=== PATIENT | female | born 1955 | race Caucasian/White ===

== ENCOUNTER 2016-10-01 06:23 | Day surgery (SDC) | payer MEDICARE, OTHER ==
--- NOTE | ~2016-10-01 | EGD ---
EGD REPORT [facility] [address] [address] NAME: TEODORA BRIDGES : 51 STATUS : REG [facility] PAT#: [id number] AGE: 61 ADM/REG DATE : 10/01/16 MR#: [id number] REPORT SERV DATE: 10/01/16 DICTATED BY: LOKI MILLER DATE: 10/01/16 REPORT STATUS : Draft [facility]: [facility] DATE: 10/01/16 Endoscopy Center Patient Name: Teodora Bridges Date of : 1955 Attending MD: LOKI MILLER MD Procedure Date No Time: 10/01/2016 Procedure: Upper GI endoscopy Indications: hx gastric carcinoid Referring MD: Richar Spear III, MD, MERRY MIJARES MD Medicines: as per anesthesia Complications: No immediate complications. Procedure: Pre-Anesthesia Assessment: - ASA Grade Assessment: III - A patient with severe systemic disease. After obtaining informed consent, the endoscope was passed under direct vision. Throughout the procedure, the patient's blood pressure, pulse, and oxygen saturations were monitored continuously. The GIF [id number] was introduced through the mouth, and advanced to the third part of duodenum. The upper GI endoscopy was accomplished without difficulty. The patient tolerated the procedure. Findings: The examined esophagus was normal. Multiple sessile polyps were found in the gastric body. Biopsies were taken with a cold forceps for histology. The examined duodenum was normal. Impression: - Normal esophagus. - Multiple gastric polyps. Biopsied. - Normal examined duodenum. Recommendation: - Await pathology results. Procedure Code(s): --- Professional --- 04739, Esophagogastroduodenoscopy, flexible, transoral; with biopsy, single or multiple Diagnosis Code(s): --- Professional --- K31.7, Polyp of stomach and duodenum CPT copyright 2013 [employer]. All rights reserved. EGD REPORT [facility] [address] [place]. [address] NAME: TEODORA BRIDGES : [birth year] STATUS : REG [facility] PAT#: [id number] AGE: 61 ADM/REG DATE : 10/01/16 MR#: [id number] REPORT SERV DATE: 10/01/16 DICTATED BY: LOKI MILLER. DATE: 10/01/16 REPORT STATUS : Draft TRANSCRIBED BY: [employer] DATE: 10/01/16 The codes documented in this report are preliminary and upon director correctional agency review may be revised to meet current compliance requirements. LOKI MILLER MD 10/01/2016 11:00 AM This report has been signed electronically. Number of Addenda: 0 Note Initiated On: 10/01/2016 10:39 AM Scope Withdrawal Time 0 hours 0 minutes 0 seconds [address] [facility] [place] [address]
[~2016-10-01 06:23] MED LIST: ASAB PO; B121000P IM; B121000P SC; BUSPAR10 PO; CALTRA600D PO; CALTRAT600 PO; CRESTOR20 MG PO; GLUCPH PO; HARD NAILS PO; HYDROCHLOROT12.5 MG PO; IRON PO; KLOR-CON 1010 MEQ PO; L20 PO; LAN25 PO; LEVOTHYROXIN50 MCG PO; LIPITOR40 PO; LOP25 PO; LOP50 PO; LOTE20 PO; LOTE40 PO; MOTRIN IB200 MG PO; NITROQUICK0.4 MG SL; PEP20 PO; PLAVIX PO; PREDNISONE2.5 MG PO; PROZAC PO; SUCR PO; SULFAZINE500 MG PO; VITAMIN B-122500 MCG SL; VITD PO; ZETIA PO
== END 2016-10-01 23:59 | disposition home or self-care (01) ==
LOC: DMU 06:23
PROVIDERS: Internal Medicine Gastroenterology
PROC: 0DB68ZX Excision of Stomach, Via Natural or Artificial Opening Endoscopic, Diagnostic (ICD-10-PCS; principal; 2016-10-01 08:30)
DX: D3A.8 Other benign neuroendocrine tumors (principal); K31.7 Polyp of stomach and duodenum; I10 Essential (primary) hypertension; E11.9 Type 2 diabetes mellitus without complications; F41.9 Anxiety disorder, unspecified; M06.9 Rheumatoid arthritis, unspecified; Z95.5 Presence of coronary angioplasty implant and graft; Z98.890 Other specified postprocedural states
CPT/HCPCS: 82962; 88305; 88360

== ENCOUNTER 2017-02-20 05:33 | Inpatient (IN) | payer MEDICARE, OTHER ==
[2017-02-13 10:09] LABS: BASOPHILS 0.6 %; BASOPHILS ABSOLUTE 0.04 10/3/uL (0.0-0.16); EOSINOPHILS 2.4 %; EOSINOPHILS ABSOLUTE 0.15 10/3/uL (0.0-0.53); HEMATOCRIT 41.1 % (36.0-48.0); IMMATURE GRANULOCYTES 0.5 %; IMMATURE GRANULOCYTES ABSOLUTE 0.03 10/3/uL (0.0-0.11); LYMPHOCYTES 16.4 %; LYMPHOCYTES ABSOLUTE 1.04 10/3/uL (0.67-4.30); MEAN CORPUS HGB CONC 34.1 g/dL (32.0-36.0); MEAN CORPUSCULAR HEMOGLOB 30.5 pg (26.0-34.0); MEAN CORPUSCULAR VOLUME 89.5 fL (80-100); MEAN PLATELET VOLUME 9.4 fL (9.2-13.0); MONOCYTES 9.1 %; MONOCYTES ABSOLUTE 0.58 10/3/uL (0.21-1.20); NEUTROPHILS ABSOLUTE 4.51 10/3/uL (2.02-8.40); PLATELET COUNT 305 10/3/uL (150-400); RBC DISTRIBUTION WIDTH 12.9 % (12.0-16.0); RED CELL COUNT 4.59 10/6/uL (4.0-5.6); WHITE BLOOD CELLS 6.4 10/3/uL (4.5-10.5)
[2017-02-13 10:12] LABS: MANUAL DIFF NO %
[2017-02-13 10:17] LABS: PARTIAL THROMBO TIME 27.5 SEC (22.5-37.2); PROTIME (NOT ORD) 12.6 SEC (12.0-14.5)
[2017-02-13 10:25] LABS: A/G RATIO 1.2 (0.7-1.9); ALBUMIN 4.6 G/DL (3.5-5.0); ALKALINE PHOSPHATASE 101 U/L (45-117); CALCIUM, SERUM 9.4 MG/DL (8.5-10.4); CHLORIDE, SERUM 101 MMOL/L (96-112); CO2 (CARBON DIOXIDE) 33 MMOL/L (24-34); GFR AFRICAN AMERICAN 112 ML/MIN (>=60); GFR NON AFRICAN AMERICAN 97 ML/MIN (>=60); GLOBULIN 3.8 G/DL (2.5-4.1); GLUCOSE, SERUM 131 MG/DL (60-99); POTASSIUM, SERUM 3.8 MMOL/L (3.5-5.3); SGOT(AST) 25 U/L (5-40); SGPT(ALT) 53 U/L (5-65); SODIUM, SERUM 140 MMOL/L (135-148); TOTAL BILIRUBIN 0.4 MG/DL (0-1.2); TOTAL PROTEIN 8.4 G/DL (6.0-8.5)
[2017-02-13 10:26] LABS: BUN (BLOOD UREA NITROGEN) 11 MG/DL (6-23)
[~2017-02-20] VITALS: Ht 154.9 cm; Wt 59.4 kg
--- NOTE | ~2017-02-20 | OP ---
Record Of Operation [facility] [address] [place]. [address] NAME: MASON ROSS : 51 STATUS : ADM IN PAT#: [id number] AGE: 61 ADM/REG DATE : 02/20/17 MR#: [id number] REPORT SERV DATE: 02/20/17 DICTATED BY: VICTOR MANUEL COLON III DATE: 02/20/17 REPORT STATUS : Draft TRANSCRIBED BY: MODL DATE: 02/20/17 DATE OF PROCEDURE: 02/20/2017 PREOPERATIVE DIAGNOSIS: Diffuse gastric carcinoid tumors. POSTOPERATIVE DIAGNOSIS: Diffuse gastric carcinoid tumors. PROCEDURE: Partial gastrectomy with gastrojejunostomy. SURGEON: Victor Manuel Colon M.D. ANESTHESIA: General with intubation. COMPLICATIONS: None. ESTIMATED BLOOD LOSS: 20 mL. SPECIMENS: Distal stomach including antrum. DRAINS: Andres-Gaines in abdominal cavity and Nohemy in subcutaneous tissue. LAP AND SPONGE COUNT: Correct x3. BRIEF HISTORY: This 61-year-old female presented with evidence for diffuse gastric carcinoid tumors. These were diffuse throughout, primarily at the body and antrum of the stomach. These were too diffuse to allow for endoscopic resection. It was felt that distal gastrectomy was indicated in an attempt to alleviate the majority of these tumors and to control the remainder by elimination of gastrin stimulation. The fact that this was a major operation with risk for major morbidity and mortality has been explained. The physiology of the disease and the indications for an antrectomy rather than total gastrectomy was explained. It was explained to the patient, however, that close endoscopic surveillance would be needed definitely after surgery. It was explained that if she did not respond and if these tumors did not resolve, then eventual return to the operating room for completion gastrectomy might be required. Regarding the surgery, the procedure, risks, benefits, and alternatives, including but not limited to the risk for bleeding, infection, enterotomy, injury to any abdominal structure, postop small bowel obstruction, ileus, incisional hernia, dehiscence, anastomotic leak, requiring reoperation, resulting in peritonitis, sepsis, and , gastroparesis gastric outlet obstruction, efferent limb syndrome, duodenal stump leak resulting in peritonitis, sepsis, and , and unforeseen complications including deep venous thrombosis, pulmonary embolus, myocardial infarction, stroke, pneumonia, and , were fully explained to the patient at length on several occasions and to her family prior to surgery. Their questions were answered. They understood the risks and agreed to surgery as planned. DESCRIPTION OF PROCEDURE: After being properly identified and after discussing the risks of surgery with the patient and family again in the preoperative area, she was taken to the Record Of Operation [address] [place]. [address] NAME: MASON ROSS : 51 STATUS : ADM IN PAT#: [id number] AGE: 61 ADM/REG DATE : 02/20/17 MR#: [id number] REPORT SERV DATE: 02/20/17 DICTATED BY: VICTOR MANUEL COLON III DATE: 02/20/17 REPORT STATUS : Draft TRANSCRIBED BY: MODJose DATE: 02/20/17 operating room and placed in a supine position on the operating room table. General anesthesia was administered, and she was intubated without difficulty. A Sinclair catheter and NG tube were inserted. The abdomen was prepped and draped sterilely in the usual fashion. After an appropriate "time-out" per JCAHO standards, a midline incision was made from just beneath the xiphoid process to several centimeters above the umbilicus. The incision was continued through the subcutaneous tissue. Hemostasis was controlled with cautery. The incision was continued through the fascia. The abdominal cavity was entered. The abdomen was inspected. The stomach was normal externally. The liver was somewhat enlarged diffusely, but there were no discrete masses or lesions noted. The exploration was, otherwise, unremarkable. We turned our attention to the stomach. We selected a point for division of the stomach near the junction of the antrum with the body. A window was made in the gastrocolic ligament at this point. The gastrocolic ligament to the greater curve of the stomach distal to this was then divided using Harmonic scalpel. Similarly, the lesser curve of the stomach was divided with Harmonic scalpel corresponding to this portion of the stomach. The dissection was continued to just beyond the pylorus. There were no palpable masses within the stomach. The greater curve of the stomach was exposed to just beyond the pylorus. The duodenum was then divided just beyond the pylorus using a TA-60 stapler. We selected a point of division of the stomach proximally, at the area of the junction between the antrum and the body of the stomach. A LUCHO stapler used to divide the stomach at this point. The distal stomach or antrum was then sent to pathology. It was interpreted containing numerous carcinoid tumors with clear margins. We then performed an end gastric to side jejunal anastomosis. The proximal jejunum, beyond ligament of Treitz was brought through a window made in the avascular portion of the mesentery to the transverse colon. Anastomosis was performed using the divided into the stomach. A two-layer anastomosis was performed end gastric to side jejunum. This was a two layer anastomosis. The outer posterior layer of the anastomosis was completed with interrupted 3-0 silk sutures. The inner layer of the anastomosis was completed with a running 3-0 chromic suture and the outer anterior layer of the anastomosis was completed with interrupted 3-0 silk sutures. It should be noted that prior to completing the anastomosis, the mucosa of the stomach was inspected through the gastrotomy. No other suspicious lesions or polyps could be seen. Upon completion of this, the anastomosis was widely patent to palpation. It was not twisted or kinked in any way, and it was not under any tension. The anastomosis was secured to the mesentery of the transverse colon with interrupted 3-0 silk sutures. Great care was taken to be certain of both afferent and efferent limbs were in the correct position, and they were not twisted or kinked in any way or not under any tension. The NG tube was positioned just proximal to the anastomosis. The duodenal stump was oversewn with interrupted 3-0 silk sutures. Evicel glue was placed over the duodenal stump closure. The abdominal cavity was irrigated copiously with saline. Hemostasis was assured. A Andres-Gaines drain was brought through a separate stab wound and placed in the right upper quadrant. The fascia was closed with a running looped #1 PDS suture. The subcutaneous tissue was closed with running 3-0 chromic suture. The skin was Record Of Operation [place] [id number] [facility] [place]. [address] NAME: MASON ROSS : 51 STATUS : ADM IN [facility]#: [id number] AGE: 61 ADM/REG DATE : 02/20/17 MR#: [id number] REPORT SERV DATE: 02/20/17 DICTATED BY: VICTOR MANUEL COLON III DATE: 02/20/17 REPORT STATUS : Draft TRANSCRIBED BY: MODL DATE: 02/20/17 closed with running subcuticular 4-0 Monocryl stitch. Dressings were applied. Anesthesia was reversed. The patient was taken to the recovery room in stable condition. She tolerated the procedure well. Her family was informed of results of surgery. The patient will remain in the hospital for postoperative care. HILDA/TEENA Victor Manuel Colon III, M.D. / [id number] CC: Ariana Fletcher III, M.D. An Tran, MD David Collins, M.D.
--- NOTE | ~2017-02-20 | PREOPHP ---
PreOp History and Physical [facility] [address] [place]. [address] NAME: MASON ROSS : 51 STATUS : ADM IN PAT#: [id number] AGE: 61 ADM/REG DATE : 02/20/17 MR#: [id number] REPORT SERV DATE: 02/20/17 DICTATED BY: VICTOR MANUEL MINER III DATE: 01/26/17 REPORT STATUS : Draft TRANSCRIBED BY: MODJose DATE: 01/26/17 HISTORY OF PRESENT ILLNESS: This 61-year-old female comes to the operating room for distal gastrectomy or antrectomy for diffuse gastric carcinoid tumor or neuroendocrine tumors. The patient has a history of diffuse polyps in the stomach on biopsy, which had been repeatedly performed. These are neuroendocrine tumors. These are not focally localized, but diffuse throughout the body of the stomach. The patient comes to the operating room now for distal gastrectomy or antrectomy in order to eliminate gastric production and to encourage regression of these tumors. The alternative of total gastrectomy has been offered to the patient, but declined. It has been fully explained to the patient that with this technique, careful endoscopic surveillance will be required. It has been explained that if she does not respond to this management or if the proximal gastric carcinoid tumors do not regress, then eventually a total gastrectomy will be required. The fact that this is a major operation with risk for major morbidity and mortality has been explained to the patient. Questions were answered. She understands and agrees to this as planned. PAST MEDICAL HISTORY: 1. Diffuse gastric carcinoid tumor, this has been associated with abdominal pain, cramping, and occasional nausea and vomiting. 2. Hypertension. 3. Diabetes mellitus. 4. Coronary artery disease. 5. Hypothyroidism. 6. Hyperlipidemia. MEDICATIONS: Pepcid, Carafate, sulfasalazine, prednisone, digoxin, hydrochlorothiazide, iron, metformin, atorvastatin, aspirin, biotin, vitamins, buspirone, benazepril, Zetia, Lasix, levothyroxine, metoprolol, and NitroQuick. PAST SURGICAL HISTORY: History of hysterectomy. FAMILY HISTORY: Positive for cancer and heart disease. SOCIAL HISTORY: The patient is . She has no history of tobacco or alcohol use. ALLERGIES: NONE. REVIEW OF SYSTEMS: Patient complains of weight loss. Her 14-point review of systems is otherwise unremarkable except for joint pain. PHYSICAL EXAMINATION: GENERAL: This is a female, in no acute distress. She is alert, oriented x3. VITAL SIGNS: Blood pressure 114/73, temperature 97.3, pulse 80. HEENT: Unremarkable. Cranial nerves 2 through 12 were normal. LUNGS: Clear. CARDIAC: Normal. ABDOMEN: Soft and nontender. PreOp History and Physical [facility] [address] [place]. [address] NAME: MASON ROSS : 51 STATUS : ADM IN [facility]#: [id number] AGE: 61 ADM/REG DATE : 02/20/17 MR#: [id number] REPORT SERV DATE: 02/20/17 DICTATED BY: VICTOR MANUEL MINER III DATE: 01/26/17 REPORT STATUS : Draft TRANSCRIBED BY: TEENA DATE: 01/26/17 EXTREMITIES: Normal with no edema. LABORATORY: Repeated upper endoscopy showed diffuse gastric polyps, primarily in the body of the stomach. Biopsy shows these to be consistent with neuroendocrine tumors, with the most recent biopsy showing increasing cytological atypia of concern for possible development of invasive malignancy. Her octreotide scan shows no evidence for metastatic disease. ASSESSMENT: 1. A 61-year-old female with longstanding gastric carcinoid tumor, diffuse throughout the stomach with no localization, which would allow for local resection. 2. Hypertension. 3. Diabetes mellitus. 4. Coronary artery disease. 5. Hypothyroidism. 6. Hyperlipidemia. 7. Arthritis. PLAN: The patient comes to the operating room now for distal gastrectomy or antrectomy. This procedure, the risks, benefits, and alternatives, including, but not limited to the risk for bleeding, infection, enterotomy, injury to abdominal structure, postop small bowel obstruction, ileus, incisional hernia, dehiscence, anastomotic leak, resulting in peritonitis, sepsis, and , duodenal stump leak, requiring reoperation or resulting in peritonitis, sepsis, and , gastroparesis, gastric bowel obstruction, common bile duct injury, pancreatic injury, and unforeseen complications including deep venous thrombosis, pulmonary embolus, myocardial infarction, stroke, pneumonia, and , have been fully and completely explained to the patient and family at length prior to surgery. The fact that this is a major operation with risk for major morbidity and mortality has been explained. The expected length of recovery has been explained. The possibility that this procedure may not result in resolution of the more proximal gastric carcinoid tumor or neuroendocrine tumors, and therefore, eventually a total gastrectomy may still be required has been explained. The patient's questions have been answered. She clearly understands the risks and agrees to surgery as planned. HILDA/TEENA Victor Manuel Miner III, M.D. / [id number] CC: Victor Manuel Miner III, M.D.
[2017-02-21 06:44] LABS: BASOPHILS 0.2 %; BASOPHILS ABSOLUTE 0.02 10/3/uL (0.0-0.16); EOSINOPHILS 0.4 %; EOSINOPHILS ABSOLUTE 0.04 10/3/uL (0.0-0.53); HEMOGLOBIN 11.5 g/dL (12.0-16.0); IMMATURE GRANULOCYTES 0.2 %; IMMATURE GRANULOCYTES ABSOLUTE 0.02 10/3/uL (0.0-0.11); LYMPHOCYTES 9.5 %; LYMPHOCYTES ABSOLUTE 1.04 10/3/uL (0.67-4.30); MEAN CORPUS HGB CONC 33.4 g/dL (32.0-36.0); MEAN CORPUSCULAR HEMOGLOB 30.1 pg (26.0-34.0); MEAN CORPUSCULAR VOLUME 90.1 fL (80-100); MEAN PLATELET VOLUME 9.1 fL (9.2-13.0); MONOCYTES ABSOLUTE 0.99 10/3/uL (0.21-1.20); NEUTROPHILS 80.7 %; NEUTROPHILS ABSOLUTE 8.83 10/3/uL (2.02-8.40); PLATELET COUNT 234 10/3/uL (150-400); RED CELL COUNT 3.82 10/6/uL (4.0-5.6)
[2017-02-21 06:47] LABS: HEMATOCRIT 34.4 % (36.0-48.0); MANUAL DIFF NO %; WHITE BLOOD CELLS 10.9 10/3/uL (4.5-10.5)
[2017-02-21 06:59] LABS: A/G RATIO 1.1 (0.7-1.9); ALBUMIN 3.1 G/DL (3.5-5.0); ALKALINE PHOSPHATASE 60 U/L (45-117); BUN (BLOOD UREA NITROGEN) 7 MG/DL (6-23); CALCIUM, SERUM 8.3 MG/DL (8.5-10.4); CHLORIDE, SERUM 105 MMOL/L (96-112); CO2 (CARBON DIOXIDE) 28 MMOL/L (24-34); CREATININE 0.58 MG/DL (0.55-1.02); GFR AFRICAN AMERICAN 114 ML/MIN (>=60); GFR NON AFRICAN AMERICAN 98 ML/MIN (>=60); GLOBULIN 2.8 G/DL (2.5-4.1); GLUCOSE, SERUM 144 MG/DL (60-99); POTASSIUM, SERUM 3.9 MMOL/L (3.5-5.3); SGOT(AST) 19 U/L (5-40); SGPT(ALT) 27 U/L (5-65); SODIUM, SERUM 139 MMOL/L (135-148); TOTAL BILIRUBIN 0.6 MG/DL (0-1.2); TOTAL PROTEIN 5.9 G/DL (6.0-8.5)
[2017-02-22 06:42] LABS: BASOPHILS 0.4 %; BASOPHILS ABSOLUTE 0.03 10/3/uL (0.0-0.16); EOSINOPHILS ABSOLUTE 0.24 10/3/uL (0.0-0.53); HEMATOCRIT 32.6 % (36.0-48.0); HEMOGLOBIN 10.9 g/dL (12.0-16.0); IMMATURE GRANULOCYTES 0.3 %; IMMATURE GRANULOCYTES ABSOLUTE 0.02 10/3/uL (0.0-0.11); LYMPHOCYTES 10.6 %; LYMPHOCYTES ABSOLUTE 0.85 10/3/uL (0.67-4.30); MEAN CORPUS HGB CONC 33.4 g/dL (32.0-36.0); MEAN CORPUSCULAR HEMOGLOB 30.5 pg (26.0-34.0); MEAN CORPUSCULAR VOLUME 91.3 fL (80-100); MEAN PLATELET VOLUME 9.1 fL (9.2-13.0); MONOCYTES ABSOLUTE 0.72 10/3/uL (0.21-1.20); NEUTROPHILS 76.7 %; NEUTROPHILS ABSOLUTE 6.14 10/3/uL (2.02-8.40); PLATELET COUNT 227 10/3/uL (150-400); RBC DISTRIBUTION WIDTH 13.1 % (12.0-16.0); RED CELL COUNT 3.57 10/6/uL (4.0-5.6)
[2017-02-22 06:55] LABS: MANUAL DIFF NO %
[2017-02-22 06:58] LABS: BUN (BLOOD UREA NITROGEN) 5 MG/DL (6-23); CALCIUM, SERUM 8.6 MG/DL (8.5-10.4); CHLORIDE, SERUM 104 MMOL/L (96-112); CO2 (CARBON DIOXIDE) 30 MMOL/L (24-34); CREATININE 0.48 MG/DL (0.55-1.02); GFR AFRICAN AMERICAN 121 ML/MIN (>=60); GFR NON AFRICAN AMERICAN 104 ML/MIN (>=60); GLUCOSE, SERUM 141 MG/DL (60-99); POTASSIUM, SERUM 3.7 MMOL/L (3.5-5.3); SODIUM, SERUM 136 MMOL/L (135-148)
[2017-02-23 06:35] LABS: BASOPHILS 0.4 %; BASOPHILS ABSOLUTE 0.03 10/3/uL (0.0-0.16); EOSINOPHILS 3.9 %; EOSINOPHILS ABSOLUTE 0.29 10/3/uL (0.0-0.53); HEMATOCRIT 33.1 % (36.0-48.0); HEMOGLOBIN 11.2 g/dL (12.0-16.0); IMMATURE GRANULOCYTES 0.3 %; IMMATURE GRANULOCYTES ABSOLUTE 0.02 10/3/uL (0.0-0.11); LYMPHOCYTES 9.8 %; LYMPHOCYTES ABSOLUTE 0.73 10/3/uL (0.67-4.30); MANUAL DIFF NO %; MEAN CORPUS HGB CONC 33.8 g/dL (32.0-36.0); MEAN CORPUSCULAR HEMOGLOB 30.2 pg (26.0-34.0); MEAN CORPUSCULAR VOLUME 89.2 fL (80-100); MEAN PLATELET VOLUME 9.1 fL (9.2-13.0); MONOCYTES 8.9 %; MONOCYTES ABSOLUTE 0.66 10/3/uL (0.21-1.20); NEUTROPHILS 76.7 %; NEUTROPHILS ABSOLUTE 5.71 10/3/uL (2.02-8.40); PLATELET COUNT 246 10/3/uL (150-400); RBC DISTRIBUTION WIDTH 12.7 % (12.0-16.0); RED CELL COUNT 3.71 10/6/uL (4.0-5.6); WHITE BLOOD CELLS 7.4 10/3/uL (4.5-10.5)
[2017-02-23 06:48] LABS: BUN (BLOOD UREA NITROGEN) 4 MG/DL (6-23); CALCIUM, SERUM 8.6 MG/DL (8.5-10.4); CHLORIDE, SERUM 101 MMOL/L (96-112); CO2 (CARBON DIOXIDE) 27 MMOL/L (24-34); GFR AFRICAN AMERICAN 119 ML/MIN (>=60); GFR NON AFRICAN AMERICAN 103 ML/MIN (>=60); GLUCOSE, SERUM 143 MG/DL (60-99); POTASSIUM, SERUM 3.9 MMOL/L (3.5-5.3); SODIUM, SERUM 136 MMOL/L (135-148)
[2017-02-24 05:54] LABS: BASOPHILS 0.6 %; BASOPHILS ABSOLUTE 0.03 10/3/uL (0.0-0.16); EOSINOPHILS 6.3 %; EOSINOPHILS ABSOLUTE 0.33 10/3/uL (0.0-0.53); HEMATOCRIT 32.1 % (36.0-48.0); IMMATURE GRANULOCYTES 0.4 %; IMMATURE GRANULOCYTES ABSOLUTE 0.02 10/3/uL (0.0-0.11); LYMPHOCYTES ABSOLUTE 0.73 10/3/uL (0.67-4.30); MEAN CORPUS HGB CONC 34.3 g/dL (32.0-36.0); MEAN CORPUSCULAR HEMOGLOB 30.5 pg (26.0-34.0); MEAN CORPUSCULAR VOLUME 88.9 fL (80-100); MEAN PLATELET VOLUME 9.3 fL (9.2-13.0); MONOCYTES 12.8 %; MONOCYTES ABSOLUTE 0.67 10/3/uL (0.21-1.20); NEUTROPHILS 65.9 %; NEUTROPHILS ABSOLUTE 3.45 10/3/uL (2.02-8.40); PLATELET COUNT 258 10/3/uL (150-400); RBC DISTRIBUTION WIDTH 12.6 % (12.0-16.0); RED CELL COUNT 3.61 10/6/uL (4.0-5.6); WHITE BLOOD CELLS 5.2 10/3/uL (4.5-10.5)
[2017-02-24 05:57] LABS: BUN (BLOOD UREA NITROGEN) 5 MG/DL (6-23); CALCIUM, SERUM 8.8 MG/DL (8.5-10.4); CHLORIDE, SERUM 98 MMOL/L (96-112); CO2 (CARBON DIOXIDE) 29 MMOL/L (24-34); CREATININE 0.52 MG/DL (0.55-1.02); GFR AFRICAN AMERICAN 118 ML/MIN (>=60); GFR NON AFRICAN AMERICAN 102 ML/MIN (>=60); GLUCOSE, SERUM 152 MG/DL (60-99); POTASSIUM, SERUM 3.4 MMOL/L (3.5-5.3); SODIUM, SERUM 133 MMOL/L (135-148)
[2017-02-24 05:58] LABS: MANUAL DIFF NO %
[2017-02-25 04:32] LABS: BASOPHILS 0.5 %; BASOPHILS ABSOLUTE 0.03 10/3/uL (0.0-0.16); EOSINOPHILS ABSOLUTE 0.38 10/3/uL (0.0-0.53); HEMATOCRIT 33.7 % (36.0-48.0); HEMOGLOBIN 11.6 g/dL (12.0-16.0); IMMATURE GRANULOCYTES 0.6 %; IMMATURE GRANULOCYTES ABSOLUTE 0.04 10/3/uL (0.0-0.11); LYMPHOCYTES 17.2 %; MEAN CORPUS HGB CONC 34.4 g/dL (32.0-36.0); MEAN CORPUSCULAR VOLUME 90.1 fL (80-100); MEAN PLATELET VOLUME 9.1 fL (9.2-13.0); MONOCYTES 9.6 %; MONOCYTES ABSOLUTE 0.61 10/3/uL (0.21-1.20); NEUTROPHILS 66.1 %; NEUTROPHILS ABSOLUTE 4.22 10/3/uL (2.02-8.40); PLATELET COUNT 298 10/3/uL (150-400); RBC DISTRIBUTION WIDTH 12.7 % (12.0-16.0); RED CELL COUNT 3.74 10/6/uL (4.0-5.6); WHITE BLOOD CELLS 6.4 10/3/uL (4.5-10.5)
[2017-02-25 04:33] LABS: MANUAL DIFF NO %
[2017-02-25 04:46] LABS: BUN (BLOOD UREA NITROGEN) 7 MG/DL (6-23); CALCIUM, SERUM 8.7 MG/DL (8.5-10.4); CHLORIDE, SERUM 100 MMOL/L (96-112); CO2 (CARBON DIOXIDE) 29 MMOL/L (24-34); CREATININE 0.47 MG/DL (0.55-1.02); GFR AFRICAN AMERICAN 122 ML/MIN (>=60); GFR NON AFRICAN AMERICAN 105 ML/MIN (>=60); GLUCOSE, SERUM 125 MG/DL (60-99); POTASSIUM, SERUM 3.4 MMOL/L (3.5-5.3); SODIUM, SERUM 137 MMOL/L (135-148)
[2017-02-26] MEDS ORDERED: ZOFRAN4 PO (08:31)
[2017-02-26] MEDS ORDERED: PERCOCET 7.5/321 TAB PO (08:32)
== END 2017-02-26 13:13 | disposition home or self-care (01) | DRG 328 ==
LOC: ENRESERVDT → ENRESERV → ENRESERVTM → 5SO 05:33 → SDC/OF 05:33 → PACU 10:01 → 5SO 14:23
PROVIDERS: Surgery
PROC: 0D160ZA Bypass Stomach to Jejunum, Open Approach (ICD-10-PCS; 2017-02-20)
PROC: 0DB60ZZ Excision of Stomach, Open Approach (ICD-10-PCS; principal; 2017-02-20 07:45)
DX: C7A.092 Malignant carcinoid tumor of the stomach (principal); I10 Essential (primary) hypertension; E11.9 Type 2 diabetes mellitus without complications; I25.10 Atherosclerotic heart disease of native coronary artery without angina pectoris; E03.9 Hypothyroidism, unspecified; E78.5 Hyperlipidemia, unspecified; M06.9 Rheumatoid arthritis, unspecified; Z79.899 Other long term (current) drug therapy; Z79.52 Long term (current) use of systemic steroids; Z79.82 Long term (current) use of aspirin; Z79.84 Long term (current) use of oral hypoglycemic drugs; Z80.8 Family history of malignant neoplasm of other organs or systems; Z82.49 Family history of ischemic heart disease and other diseases of the circulatory system; Z90.710 Acquired absence of both cervix and uterus
CPT/HCPCS: 36415; 71020; 80048; 80053; 82962; 85025; 85610; 85730; 86850; 86900; 86901; 88309; 88341; 88342; 93005; A9270-GY; C9113; J0690; J1170; J1720; J1885; J2250; J2270; J2405; J2550; J2710; J2795; J3010